=== PATIENT | female | born 1940 | race Caucasian/White ===

== ENCOUNTER → 2021-02-20 | Outpatient (REF) | payer BC, MEDICARE ==
[2021-02-20 17:23] LABS: BASO # 0.1 10^3/uL (0.0-0.2); BASO % 0.5 % (0.0-1.0); EOS # 0.2 10^3/uL (0.0-0.5); EOS % 1.5 % (0.0-3.0); HEMATOCRIT 38.1 % (36.0-47.0); HEMOGLOBIN 12.3 g/dl (12.0-15.5); LYMPH # 1.8 10^3/uL (1.5-5.0); LYMPH % 18.2 % (24.0-44.0); MEAN CORPUSCULAR HEMOGLOBIN 30.7 pg (27.0-33.0); MEAN CORPUSCULAR HGB CONC 32.3 g/dl (32.0-36.5); MONO # 0.7 10^3/uL (0.0-0.8); MONO % 7.6 % (2.0-8.0); NEUTROPHILS % 71.8 % (36.0-66.0); RED BLOOD COUNT 4.01 10^6/uL (4.00-5.40); WHITE BLOOD COUNT 9.8 10^3/uL (4.0-10.0)
[2021-02-20 17:34] LABS: COMPLEMENT C3 128 MG/DL (90-180); COMPLEMENT C4 22 MG/DL (10-40)
[2021-02-25 11:33] LABS: DRVV SCREEN 39.2 SEC
== END ==
LOC: M SFHCRHEU 15:53
PROVIDERS: ATTEND Internal Medicine
DX: R76.8 Other specified abnormal immunological findings in serum (principal)
CPT/HCPCS: 85025; 85730; 86160; 86162; G0463

== ENCOUNTER → 2021-03-21 | Outpatient (CLI) | payer MEDICARE ==
--- NOTE | 2021-03-21 10:25 | DEXAMM ---
INDICATION: Z78.0 POSTMENOPAUSAL. COMPARISON: None. TECHNIQUE: Bone density was measured using dual-energy x-ray absorptiometry (DEXA). FINDINGS: AP SPINE L1-L4 BMD 1.128 g/cm2 Young Adult T-Score -0.5 Age Matched Z-Score 1.3. LT FEMUR, TOTAL BMD 0.818 g/cm2 Young Adult T-Score -1.5 Age Matched Z-Score 0.4. LT NECK BMD 0.795 g/cm2 Young Adult T-Score -1.7 Age Matched Z-Score 0.4. RT FEMUR, TOTAL BMD 0.780 g/cm2 Young Adult T-Score -1.8 Age Matched Z-Score 0.1. RT NECK BMD 0.758 g/cm2 Young Adult T-Score -2.0 Age Matched Z-Score 0.1. IMPRESSION: There is normal bone density of the spine. 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 There is low bone density of the right hip. FOLLOW-UP: Recommendation for the next bone density exam: 2 years. <Electronically signed by Ramón Reeves > 03/21/21 1027
== END ==
LOC: M WHC 08:46
PROVIDERS: ATTEND Internal Medicine
DX: Z78.0 Asymptomatic menopausal state (principal); M85.88 Other specified disorders of bone density and structure, other site

== ENCOUNTER → 2022-05-18 | Outpatient (REF) | payer MEDICARE | LOC: M LAB REF 17:24 | PROVIDERS: ATTEND Internal Medicine Endocrinology, Diabetes & Metabolism | DX: E04.2 Nontoxic multinodular goiter (principal) ==

== ENCOUNTER → 2024-11-16 | Outpatient (CLI) | payer MEDICARE | LOC: M SOG 07:49 | PROVIDERS: ATTEND Physician Assistant | DX: M25.641 Stiffness of right hand, not elsewhere classified (principal); M25.642 Stiffness of left hand, not elsewhere classified ==